=== PATIENT | female | born 1940 | race Caucasian/White ===

== ENCOUNTER → 2025-04-17 09:36 | Outpatient (BNVA) | payer MEDICARE, OTHER, SELFPAY | PROVIDERS: Referring Provider Internal Medicine; Visit Provider Specialist | DX: R26.9 Unspecified abnormalities of gait and mobility (principal); G37.9 Demyelinating disease of central nervous system, unspecified; G31.84 Mild cognitive impairment of uncertain or unknown etiology | CPT/HCPCS: 82542; 82607; 83520; 84439; 84481; 85651; 96116; 99205 ==